=== PATIENT | female | born 1995 | race Caucasian/White ===

== ENCOUNTER 2024-08-25 23:12 | Inpatient (IN) | payer BC ==
[~2024-08-25 23:12] MED LIST: Bupivacaine 0.25% HCL 30 ML VIAL ONE
[2024-08-25] MEDS ORDERED: Oxytocin 30 units/NS 500 ML 500 ML IV SCH (23:45)
[2024-08-25] MEDS ORDERED: Carboprost 250 MCG/ML AMP IM PRN (23:54)
[2024-08-25] MEDS ORDERED: Methylergonovine 0.2 MG/ML VIAL IM PRN (23:54)
[2024-08-25] MEDS ORDERED: hydrALAZINE 20 MG/ML VIAL SLOW IVP PRN (23:54)
[2024-08-25] MEDS ORDERED: Acetaminophen 500 MG TAB PO PRN (23:54)
[2024-08-25] MEDS ORDERED: Misoprostol 200 MCG TAB PR PRN (23:54)
[2024-08-25] MEDS ORDERED: Diphenoxylate HCl/Atropine Tablet PO PRN (23:54)
[2024-08-25] MEDS ORDERED: Ibuprofen 800 MG TAB PO PRN (23:54)
[2024-08-25] MEDS ORDERED: Promethazine HCl 25 MG/ML VIAL IM PRN (23:54)
[2024-08-25] MEDS ORDERED: Lidocaine 1% (PF) 30 ML VIAL SC PRN (23:54)
[2024-08-25] MEDS ORDERED: Tranexamic Acid 1,000 MG/10 ML VIAL IVP PRN (23:54)
[2024-08-26 00:01] LABS: Hematocrit 37.4 % (34.9-44.5); Hemoglobin 13.1 g/dL (12.0-15.5); Mean Corpuscular Volume 88.6 fL (81.6-98.3); Mean Platelet Volume 11.7 fL (7.4-10.4); Platelet Count 217 10x3/uL (150-450); RBC Distribution Width 12.7 % (11.5-14.5); Red Blood Cell (RBC) Count 4.22 10x6/uL (3.90-5.03); White Blood Cell (WBC) Count 10.5 10x3/uL (3.5-10.5)
[2024-08-26 00:33] LABS: HBsAg Index 0.31 S/CO (0-0.99); Hep B Surf Ag - L&D Non-Reactive S/CO (NonReactive)
[2024-08-26 00:39] VITALS: BMI 27.3
[2024-08-26] MEDS: fentaNYL/Ropivacaine Epidural 100 ML ONE (00:50)
[2024-08-26] MEDS: Lactated Ringer's 1,000 ML IV SCH (00:50)
[2024-08-26] MEDS ORDERED: Ondansetron PF 4 MG/2 ML Vial IVP PRN (00:58)
[2024-08-26] MEDS ORDERED: Moisturizing Cream (Eucerin) 113 GM JAR TOP PRN (00:58)
[2024-08-26] MEDS ORDERED: Lactated Ringer's 500 ML IV PRN (00:58)
[2024-08-26] MEDS ORDERED: Acetaminophen 325 MG TAB PO PRN (00:58)
[2024-08-26] MEDS ORDERED: ePHEDrine Sulfate 50 MG/10 ML VIAL SLOW IVP PRN (00:58)
[2024-08-26] MEDS ORDERED: Naloxone HCl 0.4 mg/ml Vial IVP PRN ×2 (00:58)
[2024-08-26] MEDS ORDERED: diphenhydrAMINE 50 MG/ML VIAL IVP PRN (00:58)
[2024-08-26] MEDS ORDERED: Promethazine HCl 25 MG/ML VIAL IM PRN (00:58)
[2024-08-26] MEDS ORDERED: Communication Order-Pharmacy FS SCH (01:00)
[2024-08-26 01:17] LABS: Syphilis Antibody Nonreactive (Nonreactive); Syphilis Antibody Index 0.07 S/CO (<1.00 Non-Reactive)
[2024-08-26] MEDS: Ondansetron PF 4 MG/2 ML Vial IVP PRN (05:18)
[2024-08-26] MEDS: Oxytocin 30 units/NS 500 ML 500 ML IV SCH (05:18)
[2024-08-26] MEDS: fentaNYL 2 mcg/Ropivacaine 0.2% Epidural 100 ML CADD EPIDURAL SCH (09:02)
[2024-08-26] MEDS: diphenhydrAMINE 25 MG CAP PO SCH (09:11)
[2024-08-26] MEDS: Oxytocin 30 units/NS 500 ML 500 ML ONE (09:11)
[2024-08-26] MEDS ORDERED: Benzocaine-Menthol 82.5 ML CAN TOP PRN (16:44)
[2024-08-26] MEDS ORDERED: Milk Of Magnesia 30 ML UDCUP PO PRN (16:44)
[2024-08-26] MEDS ORDERED: hydrALAZINE 20 MG/ML VIAL SLOW IVP PRN (16:44)
[2024-08-26] MEDS ORDERED: Bisacodyl 10 MG SUPP PR PRN (16:44)
[2024-08-26] MEDS ORDERED: Boostrix 0.5 ML (Tdap) VIAL (>/=7 yrs of age) IM ONE (16:44)
[2024-08-26] MEDS ORDERED: Lanolin Ointment 7 GM TUBE TOP PRN (16:44)
[2024-08-26] MEDS: Ibuprofen 800 MG TAB PO SCH (17:18)
[2024-08-26] MEDS: Ferrous Sulfate 325 MG TAB PO SCH (18:15)
[2024-08-26] MEDS: Docusate 100 MG CAP PO SCH (22:02)
[2024-08-27] MEDS: Prenatal Vitamin 1 TAB PO SCH (08:02)
[2024-08-27] MEDS ORDERED: Ibuprofen 800 MG TAB PO SCH (11:00)
[2024-08-27] MEDS: Ibuprofen 800 MG TAB PO SCH (14:06)
[2024-08-28] MEDS: Famotidine/PF 20 mg/2ml Vial SLOW IVP SCH (04:18)
[2024-08-28 04:27] LABS: #Basophils 0.03 10x3/uL (0.0-0.2); #Eosinophils 0.25 10x3/uL (0.0-0.5); #Monocytes 0.65 10x3/uL (0.0-1.1); #Neutrophils 5.85 10x3/uL (1.5-8.4); %Basophils 0.4 % (0.0-2.0); %Lymphocytes 18.9 % (18.0-47.0); %Monocytes 7.8 % (0.0-10.0); %Neutrophils 69.7 % (40.0-75.0); Hematocrit 32.8 % (34.9-44.5); Hemoglobin 10.9 g/dL (12.0-15.5); Mean Corpuscular HGB CONC 33.2 g/dL (32.0-36.0); Mean Corpuscular Hemoglobin 30.4 pg (27.0-33.0); Mean Corpuscular Volume 91.6 fL (81.6-98.3); Mean Platelet Volume 11.2 fL (7.4-10.4); Platelet Count 184 10x3/uL (150-450); Red Blood Cell (RBC) Count 3.58 10x6/uL (3.90-5.03); White Blood Cell (WBC) Count 8.4 10x3/uL (3.5-10.5)
[2024-08-28] MEDS ORDERED: Ondansetron PF 4 MG/2 ML Vial IVP PRN (04:27)
[2024-08-28] MEDS: Ondansetron PF 4 MG/2 ML Vial IVP SCH (04:35)
[2024-08-28 04:41] LABS: ALT (SGPT) 12 U/L (8-55); AST (SGOT) 18 U/L (5-34); Albumin 2.6 g/dL (3.5-5.0); Alkaline Phosphatase 87 U/L (40-110); Anion Gap 16 mmol/L (10-20); BUN (Urea Nitrogen) 11 mg/dL (7.0-18.7); Bilirubin, Total 0.2 mg/dL (0.2-1.2); Calc. Creatinine Clearance 127 mL/min (70-130); Calcium 8.8 mg/dL (7.8-10.44); Carbon Dioxide 20 mmol/L (22-29); Chloride 110 mmol/L (98-107); Estimated GFR 107; Globulin 2.6 g/dL (2.4-3.5); Glucose 89 mg/dL (70-105); Potassium 3.8 mmol/L (3.5-5.1); Protein, Total 5.2 g/dL (6.0-8.3); Sodium 142 mmol/L (136-145)
[2024-08-28 04:47] LABS: Troponin I Less than 0.010 ng/mL (< 0.028)
[2024-08-28 07:34] VITALS: BP 135/77; TEMP 98.1
== END 2024-08-28 12:28 | disposition home or self-care (01) | DRG 807 ==
LOC: CSHLD/OP 23:12 → CSHLD 23:41 → CSHPP 08-26 16:05
PROVIDERS: ADMIT Obstetrics & Gynecology; ATTEND Obstetrics & Gynecology
PROC: 10E0XZZ Delivery of Products of Conception, External Approach (ICD-10-PCS; principal; 2024-08-26)
PROC: 0HQ9XZZ Repair Perineum Skin, External Approach (ICD-10-PCS; 2024-08-26)
PROC: 10H07YZ Insertion of Other Device into Products of Conception, Via Natural or Artificial Opening (ICD-10-PCS; 2024-08-26)
DX: O42.02 Full-term premature rupture of membranes, onset of labor within 24 hours of rupture (principal); Z37.0 Single live birth; Z3A.38 38 weeks gestation of pregnancy; O70.0 First degree perineal laceration during delivery; O24.420 Gestational diabetes mellitus in childbirth, diet controlled; Z90.49 Acquired absence of other specified parts of digestive tract; O99.62 Diseases of the digestive system complicating childbirth; K21.9 Gastro-esophageal reflux disease without esophagitis
CPT/HCPCS: 36415; 51702; 80053; 84484; 85025; 85027; 86780; 86850; 86900; 86901; 87340; 93005; 93010; 99285; J0665; J2405; J2590; J3490; J7120